=== PATIENT | female | born 1995 | race American Indian/Alaskan Native ===

== ENCOUNTER 2018-08-06 13:33 | Emergency (ER) | payer OTHER ==
[2018-08-06 13:44] VITALS: BP 101/51
--- NOTE | 2018-08-06 16:13 | Emergency Department Report ---
ED Female HPI - General Chief complaint: Abdominal Pain Stated complaint: ABD PAIN Time Seen by Provider: 08/06/18 16:03 Source: EMS Mode of arrival: Ambulatory Limitations: No Limitations - History of Present Illness MD Complaint: other (left lower quadrant pain) -: Gradual, This morning Severity: mild Quality: sharp Consistency: constant Are you Now?: Yes - Related Data : 1 Para: 0 Previous Rx's Medication Instructions Recorded Last Taken Type Promethazine [Phenergan TAB] 25 mg PO Q6HR PRN #20 tab 08/06/18 Unknown Rx Allergies Allergy/AdvReac Type Severity Reaction Status Date / Time ibuprofen Allergy Rash Verified 08/06/18 13:44 ED Review of Systems ROS: Stated complaint: ABD PAIN Other details as noted in HPI Comment: All other systems reviewed and negative Constitutional: denies: fever, malaise Respiratory: denies: cough Cardiovascular: denies: chest pain ED Past Medical Hx - Past Medical History Previous Medical History?: No - Surgical History Past Surgical History?: No - Social History Smoking Status: Never Smoker Substance Use Type: None - Medications Home Medications: Home Medications Medication Instructions Recorded Confirmed Last Taken Type Promethazine [Phenergan TAB] 25 mg PO Q6HR PRN #20 tab 08/06/18 Unknown Rx ED Physical Exam - General Limitations: No Limitations General appearance: alert, in no apparent distress, other (appears calm and comfortable) - Head Head exam: Present: atraumatic, normocephalic - Eye Eye exam: Present: normal appearance - ENT ENT exam: Present: mucous membranes moist - Neck Neck exam: Present: normal inspection - Respiratory Respiratory exam: Present: normal lung sounds bilaterally. Absent: respiratory distress, wheezes, rales, rhonchi - Cardiovascular Cardiovascular Exam: Present: regular rate, normal rhythm. Absent: systolic murmur, diastolic murmur, rubs, gallop - GI/Abdominal GI/Abdominal exam: Present: soft, normal bowel sounds, other (gravid). Absent: tenderness, guarding, rebound - Extremities Exam Extremities exam: Present: normal inspection - Back Exam Back exam: Present: normal inspection - Neurological Exam Neurological exam: Present: alert, oriented X3 - Psychiatric Psychiatric exam: Present: normal affect, normal mood - Skin Skin exam: Present: warm, dry, intact, normal color. Absent: rash ED Course Vital Signs 08/06/18 13:37 Temperature 97.9 F Pulse Rate 76 Respiratory 18 Rate Blood Pressure 101/51 O2 Sat by Pulse 98 Oximetry ED Medical Decision Making - Medical Decision Making Mrs. Silva is currently 15 weeks 4 days . First . Presents with left lower quadrant pain. Differential diagnosis include round ligament pain, renal colic, ovarian cysts, threatened miscarriage, IUP was confirmed according to patient's report at 9 weeks. 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 Normal vital signs. No indication of acute infection nor peritonitis such as appendicitis. I recommended Tylenol for pain. Prescription promethazine Critical care attestation.: If time is entered above; I have spent that time in minutes in the direct care of this critically ill patient, excluding procedure time. ED Disposition Clinical Impression: Abdominal pain affecting Disposition: DC-01 TO HOME OR SELFCARE Is pt being admited?: No Does the pt Need Aspirin: No Condition: Stable Instructions: Abdominal Pain in (ED) Prescriptions: Promethazine [Phenergan TAB] 25 mg PO Q6HR PRN #20 tab PRN Reason: Nausea
== END 2018-08-06 17:03 | disposition home or self-care (01) ==
LOC: ED 13:33
DX: O26.892 Other specified pregnancy related conditions, second trimester (principal); Z3A.15 15 weeks gestation of pregnancy; Z88.8 Allergy status to other drugs, medicaments and biological substances
CPT/HCPCS: 99283

== ENCOUNTER 2018-12-29 23:09 | Outpatient (CLI) | payer OTHER ==
--- NOTE | 2018-12-30 03:36 | Progress Note ---
Assessment and Plan A: at 38 weeks, 6 days gestation. Not in active labor; no cervical change after walking and after several hours of observation. P: Signs of labor and daily movement counting discussed with patient. Advised patient to return promptly if signs of active labor. Advised patient to follow up at [facility] this week. Subjective - Subjective Date of service: 12/29/18 Principal diagnosis: at 38 weeks, 6 days gestation; R/O labor Interval history: 23 year old at 38 weeks, 6 days gestation presents to rule out active labor. Patient reports contractions on and off for several days. She denies leaking of water or vaginal bleeding. Patient reports active movement. Patient has been receiving care at [facility]. Patient reports: movement normal, contractions, no loss of fluid, no vaginal bleeding Objective - Vital Signs Vital Signs: Vital Signs - 12hr 12/30/18 01:18 Pulse Rate 83 Blood Pressure 110/57 - Exam Abdomen: Present: normal appearance, soft. Absent: distention, tenderness, rigidity Uterus: Present: normal, fundal height above umbilicus. Absent: tenderness FHR: category 1 Uterine Contraction Monitor Mode: External Cervical Dilatation: 3 Cervical Effacement Percentage: 75 station: -3 Uterine Contraction Pattern: Irregular Uterine Contraction Intensity: Mild Extremities: normal
[2018-12-30 03:47] VITALS: BP 110/84
== END 2018-12-30 03:47 | disposition home or self-care (01) ==
LOC: TRG 23:09
PROVIDERS: ATTEND Obstetrics & Gynecology
DX: O62.8 Other abnormalities of forces of labor (principal); Z3A.39 39 weeks gestation of pregnancy
CPT/HCPCS: 59025

== ENCOUNTER 2019-01-01 08:31 | Inpatient (IN) | payer OTHER ==
[2019-01-01 10:17] LABS: Basophils % (Auto) 0.3 % (0.0-1.8); Eosinophils % (Auto) 0.5 % (0.0-4.3); Hematocrit 37.4 % (30.3-42.9); Hemoglobin 12.8 gm/dl (10.1-14.3); Lymphocytes % (Auto) 16.8 % (13.4-35.0); Mean Corpuscular HGB Conc 34 % (30-34); Mean Corpuscular Volume 90 fl (79-97); Monocytes # (Auto) 0.5 K/mm3 (0.0-0.8); Monocytes % (Auto) 7.9 % (0.0-7.3); Platelet Count 257 K/mm3 (140-440); Red Blood Count 4.14 M/mm3 (3.65-5.03); Red Cell Distribution Width 13.7 % (13.2-15.2)
[2019-01-01] MEDS ORDERED: SUBLIMAZE IV PRN (10:56)
[2019-01-01] MEDS ORDERED: MINERAL OIL PO PRN (10:56)
[2019-01-01] MEDS ORDERED: BRETHINE SUB-Q PRN (10:56)
[2019-01-01] MEDS ORDERED: XYLOCAINE 2% INFILTRATI ONE (10:56)
[2019-01-01] MEDS ORDERED: PITOCin/NS 30 UNIT/500ML 30 UNITS/500 ML BAG IV SCH ×2 (11:00)
[2019-01-01] MEDS ORDERED: PITOCin/NS 20 UNIT/1000ML DRIP 20 UNITS/1,000 ML BAG IV SCH (11:00)
[2019-01-01] MEDS: LACTATED RINGERS 1,000 ML IV SCH ×3 (11:04→18:21)
--- NOTE | 2019-01-01 11:42 | History and Physical Report ---
History of Present Illness Date of examination: 01/01/19 Date of admission: 01/01/19 08:31 Chief complaint: Induction of labor Maternal obesity History of present illness: 23 yo, @ 39.2 wks gestation. Initiated PNC with [facility] @ 6.1 wks. Her has been complicated by maternal obesity, Chlamydia, rubella non- immune status and Vit D deficiency. See has been co-manged by [facility] throughout the . Past History Past Medical History: other (Chlamydial cervicitis) Past Surgical History: no surgical history [facility] History: chlamydia Family/Genetic History: cancer (Grandmother (maternal) with lung and breast Ca) Social history: no significant social history, single, Lives alone - Obstetrical History Expected Date of Delivery: 01/06/19 Actual Gestation: 39 Week(s) 2 Day(s) : 1 Para: 0 Hx # Term Pregnancies: 0 Number of Pregnancies: 0 Spontaneous Abortions: 0 Induced : 0 Number of Living Children: 0 Medications and Allergies Allergies Allergy/AdvReac Type Severity Reaction Status Date / Time ibuprofen Allergy Rash Verified 01/01/19 09:07 Home Medications Medication Instructions Recorded Confirmed Last Taken Type Vit,Calc76/Iron/Folic 1 each PO DAILY 01/01/19 01/01/19 1 Day Ago History [Pnv 29-1 Tablet] ~12/31/18 Active Meds: Active Medications Ephedrine Sulfate (Ephedrine Sulfate) 10 mg IV Q2M PRN PRN Reason: Hypotension Fentanyl (Sublimaze) 100 mcg IV Q2H PRN PRN Reason: Labor Pain Lactated Ringer's (Lactated Ringers) 1,000 mls @ 125 mls/hr IV DIRECT MOSHE Last Admin: 01/01/19 11:04 Dose: 125 mls/hr Documented by: Oxytocin/Sodium Chloride (Pitocin/Ns 20 Unit/1000ml Drip) 20 units in 1,000 mls @ 125 mls/hr IV DIRECT MOSHE Oxytocin/Sodium Chloride (Pitocin/Ns 30 Unit/500ml) 30 units in 500 mls @ 1 mls/hr IV TITR MOSHE; Protocol Oxytocin/Sodium Chloride (Pitocin/Ns 30 Unit/500ml) 30 units in 500 mls @ 4 mls/hr IV TITR MOSHE; Protocol Mineral Oil (Mineral Oil) 30 ml PO QHS PRN PRN Reason: Constipation Terbutaline Sulfate (Brethine) 0.25 mg SUB-Q ONCE PRN PRN Reason: Hyperstimulation/Hypertonicity Review of Systems All systems: negative - Vital Signs Vital signs: Vital Signs Pulse BP 103 H 119/64 01/01/19 09:05 01/01/19 09:05 Temp Pulse Resp BP Pulse Ox 98.3 F 103 H 18 119/64 01/01/19 09:19 01/01/19 09:05 01/01/19 09:19 01/01/19 09:05 - Physical Exam Breasts: Positive: normal Cardiovascular: Regular rate, Normal S1, Normal S2 Lungs: Positive: Clear to auscultation, Normal air movement Abdomen: Positive: other (gravid) Genitourinary (Female): Positive: normal external genitalia, normal perenium Vagina: Positive: normal moisture Uterus: Positive: other (S=D) Extremities: Positive: normal Deep Tendon Reflex Grade: Normal +2 - Obstetrical FHR: category 1 Uterine Contraction Monitor Mode: External Cervical Dilatation: 4 Cervical Effacement Percentage: 70 station: -2 Uterine Contraction Frequency (min): 3-5 Uterine Contraction Duration: <60 secs Uterine Contraction Pattern: Irregular Uterine Tone Measurement Phase: Resting Uterine Contraction Intensity: Mild Results Result Diagrams: 01/01/19 10:00 Abnormal lab results 01/01/19 Range/Units 10:00 [place] % (Auto) 7.9 H (0.0-7.3) % Lymph # 1.0 L (1.2-5.4) K/mm3 Seg Neutrophils % 74.5 H (40.0-70.0) % All other labs normal. Assessment and Plan A: 1. 23 yo, @ 39.2 wks gestation 2. A+ blood type 3. Obesity 4. GBS negative P: 1. Admit to [facility] 2. IOL secondary to maternal obesity 3. Pitocin induction 4. Epidural as desired 5. Anticipate
[2019-01-01] MEDS ORDERED: NARCAN 2 MG/2 ML IV PRN (15:28)
[2019-01-01] MEDS ORDERED: fentaNYL-BUPIV 2 MCG/ML-0.125% 200 MCG/100 ML BAG EPIDURAL SCH (16:00)
--- NOTE | 2019-01-01 16:53 | Progress Note ---
Assessment and Plan A: 1. 23 yo, @ 39.2 wks gestation 2. A+ blood type 3. Obesity 4. GBS negative 5. Pitocin @ 10 mu/min 6. SROM- clear fluids P: 1. Continue Pitocin titration as tolerated 2. Epidural placement 3. Anticipate Subjective - Subjective Date of service: 01/01/19 Principal diagnosis: IOL for obesity Interval history: 23 yo, @ 39.2 wks gestation. Initiated PNC with [facility] @ 6.1 wks. Her has been complicated by maternal obesity, Chlamydia, rubella non- immune status and Vit D deficiency. See has been co-manged by [facility] throughout the . Patient reports: movement normal, contractions, other (Request to have epidural), no new complaints, no loss of fluid, no vaginal bleeding Objective - Vital Signs Vital Signs: Vital Signs - 12hr 01/01/19 01/01/19 01/01/19 09:05 09:19 12:36 Temperature 98.3 F Pulse Rate 103 H 94 H Respiratory 18 Rate Blood Pressure 119/64 98/55 01/01/19 01/01/19 01/01/19 13:08 13:37 14:08 Temperature Pulse Rate 85 80 77 Respiratory Rate Blood Pressure 106/56 86/50 109/57 01/01/19 01/01/19 01/01/19 14:38 15:08 15:37 Temperature Pulse Rate 76 80 81 Respiratory Rate Blood Pressure 101/49 106/58 117/59 01/01/19 01/01/19 01/01/19 15:44 15:47 15:50 Temperature Pulse Rate 82 98 H 83 Respiratory Rate Blood Pressure 111/57 105/54 106/54 01/01/19 01/01/19 01/01/19 15:53 15:56 15:59 Temperature Pulse Rate 83 85 76 Respiratory Rate Blood Pressure 107/62 121/61 121/56 01/01/19 01/01/19 01/01/19 16:01 16:02 16:05 Temperature 98.2 F Pulse Rate 89 90 76 Respiratory 100 H Rate Blood Pressure 115/56 116/56 01/01/19 01/01/19 01/01/19 16:08 16:11 16:14 Temperature Pulse Rate 82 80 79 Respiratory Rate Blood Pressure 111/50 108/55 109/53 01/01/19 01/01/19 01/01/19 16:15 16:17 16:33 Temperature Pulse Rate 76 75 Respiratory 18 Rate Blood Pressure 109/53 109/55 109/57 - Exam Breasts: deferred Cardiovascular: Regular rate Lungs: Normal air movement FHR: category 1 Uterine Contraction Monitor Mode: External Cervical Dilatation: 4 Cervical Effacement Percentage: 70 station: -2 Uterine Contraction Frequency (min): 2-3 Uterine Contraction Duration: 60 secs Uterine Contraction Pattern: Regular Uterine Contraction Intensity: Moderate - Labs Labs: Abnormal Labs 01/01/19 10:00 [place]olls % (Auto) 7.9 H Lymph # 1.0 L Seg Neutrophils % 74.5 H Laboratory Results - last 24 hr 01/01/19 10:00 WBC 6.1 RBC 4.14 Hgb 12.8 Hct 37.4 MCV 90 MCH 31 MCHC 34 RDW 13.7 Plt Count 257 Lymph % (Auto) 16.8 [place]olls % (Auto) 7.9 H Eos % (Auto) 0.5 Baso % (Auto) 0.3 Lymph # 1.0 L [place]olls # 0.5 Eos # 0.0 Baso # 0.0 Seg Neutrophils % 74.5 H Seg Neutrophils # 4.6
[2019-01-01] MEDS ORDERED: LANSINOH TP PRN (21:29)
[2019-01-01] MEDS ORDERED: ZOFRAN IV PRN (21:29)
[2019-01-01] MEDS ORDERED: TUCKS PAD TP PRN (21:29)
[2019-01-01] MEDS ORDERED: PHENERGAN PO PRN (21:29)
[2019-01-01] MEDS ORDERED: MILK OF MAGNESIA PO PRN (21:29)
[2019-01-01] MEDS ORDERED: BENADRYL PO PRN (21:29)
--- NOTE | 2019-01-01 21:50 | Procedure Note ---
OB Delivery Note - Delivery Date of Delivery: 01/01/19 (2100) Surgeon: ASHLEY VILLASENOR (CNM) Estimated blood loss: 200cc - Vaginal Delivery presentation: vertex Delivery position: OA Intrapartum events: shoulder dystocia (x 1 min) Delivery induction: oxytocin Delivery augmentation: rupture of membranes Delivery monitor: external FHT, external uterine Route of delivery: Delivery placenta: spontaneous (at 2107) Delivery cord: 3 umbilical vessels Episiotomy: none Delivery laceration: none Anesthesia: epidural Delivery comments: Arrived to room with pt complete and requesting to push. Good maternal pushing efforts. of head at 2056. Head delivered at 2058, followed by shoulder dystocia x 60 sec, released by Lesli maneuver with at 2099 of viable male with poor tone and no cry. Cord immediately double clamped, placed on maternal abdomen, baby stimulated followed by spontaneous cry. Passed off to NICU team at 2101. Placenta spontaneously delivered, andraed, disposed per hospital policy. Perineum intact, hemostasis maintained. Baby evaluated by NICU and returned to mother, placed [id number]. Infant alert with eyes open. Mother and baby stable and safe. - Infant A at 1 minute: 7 at 5 minutes: 8 Infant Gender: Male (Weight: 6lbs 11oz (3042 gms) 19 inches.)
[2019-01-01] MEDS ORDERED: SODIUM CHLORIDE FLUSH SYRINGE 10 ML IV PRN (22:00)
[2019-01-02] MEDS: NORCO 5/325 PO PRN ×3 (01:01→22:16)
[2019-01-02 04:46] LABS: Hematocrit 33.3 % (30.3-42.9); Hemoglobin 11.4 gm/dl (10.1-14.3); Mean Corpuscular HGB Conc 34 % (30-34); Mean Corpuscular Volume 90 fl (79-97); Platelet Count 194 K/mm3 (140-440); Red Blood Count 3.69 M/mm3 (3.65-5.03); Red Cell Distribution Width 13.9 % (13.2-15.2)
[2019-01-02 10:42] LABS: Hematocrit 32.4 % (30.3-42.9); Hemoglobin 11.1 gm/dl (10.1-14.3)
--- NOTE | 2019-01-02 10:57 | Progress Note ---
Assessment and Plan A: PP Day #1 Stable P: Follow Routine orders Desires Discharge in the AM D/C Home in the AM RTO in 6 Weeks Subjective - Subjective Date of service: 01/02/19 Principal diagnosis: IOL for obesity Patient reports: appetite normal, voiding normally, pain well controlled, flatus, ambulating normally : doing well, bottle feeding (and ) Objective - Vital Signs Latest vital signs: Vital Signs Temp Pulse Resp BP 01/01/19 21:48 101 H 102/55 01/01/19 21:33 87 100/51 01/01/19 21:18 94 H 110/48 01/01/19 21:11 102 H 118/56 01/01/19 19:18 88 114/70 01/01/19 19:03 88 117/72 01/01/19 18:48 90 106/65 01/01/19 18:34 90 107/53 01/01/19 18:18 85 102/54 01/01/19 18:03 80 102/58 01/01/19 17:48 81 106/57 01/01/19 17:33 81 117/59 01/01/19 17:18 84 119/60 01/01/19 17:05 96 H 113/56 01/01/19 16:49 75 120/56 01/01/19 16:33 75 109/57 01/01/19 16:17 76 109/55 01/01/19 16:15 18 109/53 01/01/19 16:14 79 109/53 01/01/19 16:11 80 108/55 01/01/19 16:08 82 111/50 01/01/19 16:05 76 116/56 01/01/19 16:02 90 115/56 01/01/19 16:01 98.2 F 89 100 H 01/01/19 15:59 76 121/56 01/01/19 15:56 85 121/61 01/01/19 15:53 83 107/62 01/01/19 15:50 83 106/54 01/01/19 15:47 98 H 105/54 01/01/19 15:44 82 111/57 01/01/19 15:37 81 117/59 01/01/19 15:08 80 106/58 01/01/19 14:38 76 101/49 01/01/19 14:08 77 109/57 01/01/19 13:37 80 86/50 01/01/19 13:08 85 106/56 01/01/19 12:36 94 H 98/55 Intake and Output 01/01/19 01/02/19 01/02/19 22:59 06:59 14:59 Intake Total 1591.467 Balance 1591.467 Intake: IV 1591.467 Lactated Ringers 1,000 ml 1550 @ 125 mls/hr IV DIRECT MOSHE Rx#:[id number] PITOCin/NS 30 UNIT/500ML 41.467 30 units In 500 ml @ 4 mls/hr IV TITR MOSHE Rx#: [id number] Other: Estimated Blood Loss 200 - Exam Breasts: Present: normal Cardiovascular: Present: Regular rate Lungs: Present: Clear to auscultation, Normal air movement Abdomen: Present: normal appearance, soft, normal bowel sounds Uterus: Present: normal, firm, fundal height below umbilicus Extremities: Present: normal
--- NOTE | 2019-01-02 11:05 | Discharge Summary ---
Providers - Providers Date of Admission: 01/01/19 08:31 Date of discharge: 01/03/19 Attending physician: HELEN SARGENT MD Primary care physician: HELEN SARGENT MD Hospitalization Reason for admission: active labor Delivery: Episiotomy: none Laceration: none Other procedures: none complications: none Discharge diagnosis: IUP at term delivered [place] baby: male Condition at discharge: Good Disposition: DC-01 TO HOME OR SELFCARE Plan - Provider Discharge Summary Activity: routine, no sex for 6 weeks, no heavy lifting 4 weeks, no strenuous exercise Diet: routine Instructions: routine Additional instructions: [] Smoking cessation referral if applicable(refer to patient education folder for contact #) [] Refer to [facility]'s [facility] Booklet Call your doctor immediately for: * Fever > 100.5 * Heavy vaginal bleeding ( >1 pad per hour) * Severe persistent headache * Shortness of breath * Reddened, hot, painful area to leg or breast * Drainage or odor from incision. * Keep incision clean and dry at all times and follow doctor's instructions regarding bathing/showering - Follow up plan Follow up: HELEN SARGENT MD [Primary Care Provider] - 6 Weeks
[2019-01-02] MEDS ORDERED: DEPO-PROVERA (CONTRACEPTION) IM ONE (11:48)
[2019-01-02] MEDS: PRENATAL VITAMIN PO SCH (12:30)
[2019-01-03] MEDS: PRENATAL VITAMIN PO SCH (10:07)
[2019-01-03] MEDS ORDERED: M-M-R II VACCINE SUB-Q ONE (16:07)
[2019-01-03 18:49] VITALS: BP 126/68
== END 2019-01-03 16:45 | disposition home or self-care (01) | DRG 807 ==
LOC: LD 08:31 → OB 23:57
PROVIDERS: ADMIT Obstetrics & Gynecology; ATTEND Obstetrics & Gynecology
PROC: 10E0XZZ Delivery of Products of Conception, External Approach (ICD-10-PCS; principal; 2019-01-01)
PROC: 3E0R3BZ Introduction of Anesthetic Agent into Spinal Canal, Percutaneous Approach (ICD-10-PCS; 2019-01-01)
PROC: 00HU33Z Insertion of Infusion Device into Spinal Canal, Percutaneous Approach (ICD-10-PCS; 2019-01-01)
PROC: 3E0234Z Introduction of Serum, Toxoid and Vaccine into Muscle, Percutaneous Approach (ICD-10-PCS; 2019-01-03)
DX: O99.214 Obesity complicating childbirth (principal); Z37.0 Single live birth; O66.0 Obstructed labor due to shoulder dystocia; E66.9 Obesity, unspecified; Z3A.39 39 weeks gestation of pregnancy; Z23 Encounter for immunization
CPT/HCPCS: 36415; 85014; 85018; 85025; 85027; 86592; 86850; 86900; 86901; 90707; G0378; J1050; J2590; J7120